=== PATIENT | female | born 1980 | race African-American/Black ===

== ENCOUNTER 2017-01-23 09:21 | Observation (INO) | payer MEDICAID ==
[~2017-01-23] VITALS: Ht 160 cm; Wt 107.0 kg
[2017-01-23] MEDS ORDERED: METF500T4 PO (09:56)
[2017-01-23] MEDS ORDERED: SODIUM CHLORIDE 0.9% 1,000 ML IV SCH (10:30)
[2017-01-23] MEDS ORDERED: LABETALOL HCL 200MG TABLET PO SCH (10:45)
[2017-01-23 12:00] LABS: BASOPHILS % 0.2 % (0.0-2.0); EOSINOPHILS % 0.6 % (0.0-5.0); HEMATOCRIT. 31.1 % (36.0-48.0); HEMOGLOBIN. 10.7 g/dL (12.0-16.0); LYMPHOCYTES % 11.7 % (20.0-50.0); MEAN CORPUSCULAR HEMOGLOBIN 33.7 pg (28.0-32.0); MEAN CORPUSCULAR VOLUME 98.2 fL (81.0-99.0); MEAN PLATELET VOLUME 8.7 fl (7.4-10.4); MONOCYTES % 6.7 % (2.0-8.0); NEUTROPHILS % 80.8 % (40.0-76.0); PLATELET 190 x1000/uL (130-400); RED BLOOD CELL COUNT 3.17 mill/uL (4.2-5.4); RED CELL DISTRIBUTION WIDTH 12.4 % (11.6-14.6)
[2017-01-23 12:07] LABS: D-DIMER 0.59 mg/L FEU (<0.50); PARTIAL THROMBOPLASTIN TIME 30.2 sec (23.4-31.0); PROTHROMBIN TIME 10.2 sec (9.4-11.6)
[2017-01-23 12:10] LABS: CLARITY URINE CLEAR (CLEAR); COLOR URINE YELLOW (YELLOW); GLUCOSE URINE NEGATIVE (NEGATIVE); KETONES URINE TRACE (NEGATIVE); LEUKOCYTE ESTERASE URINE 2+ (NEGATIVE); NITRITE URINE NEGATIVE (NEGATIVE); OCCULT BLOOD URINE NEGATIVE (NEGATIVE); PH URINE 7.5 (4.5-8.0); PROTEIN URINE NEGATIVE (NEGATIVE); SPECIFIC GRAVITY URINE 1.021 (1.005-1.030); UROBILINOGEN URINE 0.2 E.U./dL (0.2-1.0)
[2017-01-23 12:17] LABS: CHLORIDE 105 mEq/L (98-107)
[2017-01-23 12:25] LABS: CARBON DIOXIDE 24 mEq/L (21-32)
[2017-01-23 12:25] LABS: *AMPHETAMINES SCREEN URINE NEGATIVE (NEGATIVE); *BARBITURATES SCREEN URINE NEGATIVE (NEGATIVE); *BENZODIAZEPINES SCREEN URINE NEGATIVE (NEGATIVE); *COCAINE SCREEN URINE NEGATIVE (NEGATIVE); METHADONE URINE SCREEN NEGATIVE (NEGATIVE); OPIATES URINE SCREEN NEGATIVE (NEGATIVE); PHENCYCLIDINE URINE SCREEN NEGATIVE (NEGATIVE)
[2017-01-23 12:26] LABS: CANNABINOID URINE SCREEN PRESUMTIVE POSITIVE (NEGATIVE)
[2017-01-23] MEDS: TERBUTALINE SULFATE 1MG/ML VIAL SUBCUT PRN ×3 (12:58→14:52)
[2017-01-23 13:57] LABS: RUBELLA IGG 36.5 IU/mL (4.99-10)
[2017-01-23 13:58] LABS: HEPATITIS B SURFACE ANTIGEN NEGATIVE
[2017-01-23] MEDS ORDERED: CEFAZOLIN 2,000 MG in DEXT 5% WATER 100 ML IV NR (14:30)
[2017-01-23] MEDS ORDERED: LABETALOL HCL 100MG TABLET PO NR (16:15)
[2017-01-23] MEDS ORDERED: BETAMETHASONE ACET/BETAMET 30 MG/5 ML VIAL IM NR (16:15)
[2017-01-23] MEDS ORDERED: NIFEDIPINE XL 30MG TAB PO SCH (18:45)
[2017-01-31 07:19] LABS: CANNABINOID CONFIRMATION URINE Positive (.)
== END 2017-01-23 20:28 | disposition left against medical advice (07) ==
LOC: L&D 09:21
PROVIDERS: ADMIT Specialist; ATTEND Specialist
DX: O26.893 Other specified pregnancy related conditions, third trimester (principal); R10.2 Pelvic and perineal pain; O10.913 Unspecified pre-existing hypertension complicating pregnancy, third trimester; O24.113 Pre-existing type 2 diabetes mellitus, in pregnancy, third trimester; E11.9 Type 2 diabetes mellitus without complications; Z3A.31 31 weeks gestation of pregnancy
CPT/HCPCS: 36415; 76805; 76818; 80053; 80305; 80349; 81001; 82731; 84550; 85025; 85379; 85384; 85610; 85730; 86592; 86703; 86762; 86850; 86900; 86901; 87070; 87340; 96361; 96365; 96372; 99281; G0378; J0690; J0702; J3105; J7030; J7060

== ENCOUNTER 2017-03-21 02:34 | Inpatient (IN) | payer MEDICAID ==
[2017-03-21] VITALS (27 sets, daily range): BP systolic 90–155; BP diastolic 60–91
[~2017-03-21] VITALS: Ht 162.6 cm; Wt 108.0 kg
[~2017-03-21 02:34] MED LIST: METF500T4 PO
[2017-03-21] MEDS ORDERED: METO25TA6 PO (02:40)
[2017-03-21] MEDS ORDERED: PNV1TABL76 PO (02:40)
[2017-03-21] MEDS ORDERED: LISI2.5T47 PO (02:40)
[2017-03-21] MEDS ORDERED: HYDR12.529 PO (02:40)
[2017-03-21] MEDS ORDERED: DEXT 5%/LACTATED RINGERS 1,000 ML IV SCH (02:55)
[2017-03-21] MEDS ORDERED: LACTATED RINGERS 1,000 ML IV SCH (02:55)
[2017-03-21] MEDS ORDERED: CARBOPROST TROMETHAMINE 250 MCG/ML AMPUL IM PRN (03:00)
[2017-03-21] MEDS ORDERED: TERBUTALINE SULFATE 1MG/ML VIAL SUBCUT NR (03:00)
[2017-03-21] MEDS ORDERED: BUTORPHANOL TARTRATE 2 MG/ML VIAL IV PRN (03:00)
[2017-03-21] MEDS ORDERED: MAGNESIUM 20 G PREMIX (L & D) 500 ML IV SCH (03:00)
[2017-03-21] MEDS ORDERED: NALOXONE HCL 0.4 MG/ML 1ML VIAL IM PRN (03:00)
[2017-03-21] MEDS ORDERED: METHYLERGONOVINE MALEATE 0.2 MG/ML IM PRN (03:00)
[2017-03-21] MEDS ORDERED: MISOPROSTOL 100MCG TABLET VG PRN (03:00)
[2017-03-21] MEDS: HYDRALAZINE 20MG/ML VIAL IV NR ×2 (03:37→03:47)
[2017-03-21 03:46] LABS: BASOPHILS % 0.4 % (0.0-2.0); EOSINOPHILS % 1.3 % (0.0-5.0); HEMATOCRIT. 34.5 % (36.0-48.0); LYMPHOCYTES % 11.4 % (20.0-50.0); MEAN CORPUSCULAR HEMOGLOBIN 33.8 pg (28.0-32.0); MEAN CORPUSCULAR VOLUME 97.6 fL (81.0-99.0); MEAN PLATELET VOLUME 8.5 fl (7.4-10.4); MONOCYTES % 7.9 % (2.0-8.0); PLATELET 195 x1000/uL (130-400); RED BLOOD CELL COUNT 3.54 mill/uL (4.2-5.4); RED CELL DISTRIBUTION WIDTH 12.3 % (11.6-14.6)
[2017-03-21 03:55] LABS: PARTIAL THROMBOPLASTIN TIME 28.4 sec (23.4-31.0)
[2017-03-21 03:59] LABS: CHLORIDE 107 mEq/L (98-107)
[2017-03-21 04:15] LABS: CARBON DIOXIDE 21 mEq/L (21-32)
[2017-03-21] MEDS ORDERED: MORPHINE SULFATE/PF 1MG/ML 10ML AMP ONE (04:30)
[2017-03-21] MEDS ORDERED: MIDAZOLAM HCL 2 MG/2 ML VIAL ONE (04:30)
[2017-03-21] MEDS ORDERED: PHENYLEPHRINE HCL 10 MG/ML 1ML (IV VIAL) IV ONE (04:33)
[2017-03-21] MEDS ORDERED: CEFAZOLIN 2000MG PREMIX 100 ML IV ONE (04:33)
[2017-03-21] MEDS ORDERED: ONDANSETRON HCL 4MG/2ML VIAL ONE (04:33)
[2017-03-21] MEDS ORDERED: EPHEDRINE SULFATE 50MG/ML VIAL ONE (04:33)
[2017-03-21] MEDS ORDERED: SODIUM CHLORIDE 0.9% 10ML VIAL ONE (04:33)
[2017-03-21] MEDS ORDERED: DEXAMETHASONE 4MG/ML 1ML VIAL ONE (04:33)
[2017-03-21] MEDS ORDERED: OXYTOCIN 10 UNITS/ML 1ML ONE (04:33)
[2017-03-21 04:44] LABS: CLARITY URINE CLEAR (CLEAR); COLOR URINE YELLOW (YELLOW); GLUCOSE URINE NEGATIVE (NEGATIVE); KETONES URINE 2+ (NEGATIVE); LEUKOCYTE ESTERASE URINE 2+ (NEGATIVE); NITRITE URINE NEGATIVE (NEGATIVE); OCCULT BLOOD URINE TRACE (NEGATIVE); PH URINE 7.5 (4.5-8.0); PROTEIN URINE 2+ (NEGATIVE); SPECIFIC GRAVITY URINE 1.022 (1.005-1.030)
[2017-03-21] MEDS: LABETALOL 5MG/ML SYR 20 MG/4 ML SYRINGE IV NR ×2 (04:51→06:04)
[2017-03-21] MEDS ORDERED: LABETALOL 5MG/ML SYR 20 MG/4 ML SYRINGE IV NR (05:15)
[2017-03-21 05:22] LABS: *AMPHETAMINES SCREEN URINE NEGATIVE (NEGATIVE); *BARBITURATES SCREEN URINE NEGATIVE (NEGATIVE); *BENZODIAZEPINES SCREEN URINE NEGATIVE (NEGATIVE); *COCAINE SCREEN URINE NEGATIVE (NEGATIVE); METHADONE URINE SCREEN NEGATIVE (NEGATIVE); OPIATES URINE SCREEN NEGATIVE (NEGATIVE); PHENCYCLIDINE URINE SCREEN NEGATIVE (NEGATIVE)
[2017-03-21 05:35] LABS: CANNABINOID URINE SCREEN PRESUMTIVE POSITIVE (NEGATIVE)
[2017-03-21] MEDS ORDERED: LABETALOL 5MG/ML SYR 20 MG/4 ML SYRINGE IV PRN (05:45)
[2017-03-21 06:51] LABS: RUBELLA IGG 42.5 IU/mL (4.99-10)
[2017-03-21 06:52] LABS: HEPATITIS B SURFACE ANTIGEN NEGATIVE
[2017-03-21] MEDS ORDERED: DEXT 5%/LR + PITOCIN 20UNITS/L 1,000 ML IV SCH (07:36)
[2017-03-21] MEDS ORDERED: LANOLIN OINT 0.25 GM TUBE TOP PRN (07:45)
[2017-03-21] MEDS ORDERED: DIPHENHYDRAMINE 25MG CAPSULE PO PRN (07:45)
[2017-03-21] MEDS ORDERED: RHO(D) IMMUNE GLOBULIN 300 MCG/SYR IM PRN (07:45)
[2017-03-21] MEDS ORDERED: HYDROCODONE/ACETAMINOPHEN 5/325MG TABLET PO PRN (07:45)
[2017-03-21] MEDS ORDERED: ONDANSETRON HCL 4MG/2ML VIAL IV PRN ×2 (07:45→11:00)
[2017-03-21] MEDS ORDERED: BISACODYL 10MG SUPP PR PRN (07:45)
[2017-03-21 07:56] LABS: BG BASE EXCESS -12.3 mmol/L (-2.0-2.0); BG FRACTION INSPIRED OXYGEN 21; BG HCO3 ACT 17.3 mmol/L (22.0-26.0); BG PCO2 53.8 mmHg (35.0-45.0); BG PH 7.125 (7.350-7.450); BG PO2 < 30.3 mmHg (75.0-100.0); BG SAMPLE SITE CORD; BG VENT MODE ROOM AIR
[2017-03-21 07:57] LABS: BG BASE EXCESS -7.2 mmol/L (-2.0-2.0); BG FRACTION INSPIRED OXYGEN 21; BG HCO3 ACT 20.3 mmol/L (22.0-26.0); BG PCO2 48.8 mmHg (35.0-45.0); BG PH 7.238 (7.350-7.450); BG PO2 < 30.3 mmHg (75.0-100.0); BG SAMPLE SITE CORD; BG VENT MODE ROOM AIR
[2017-03-21] MEDS ORDERED: INFLUENZA VIRUS VACCINE 0.5ML SYR IM ONE (08:45)
[2017-03-21] MEDS ORDERED: TETANUS, DIPHTHERIA, PERTUSSIS VAC/PF 0.5ML (>7YR OLD) IM ONE (08:45)
[2017-03-21] MEDS: METOPROLOL TARTRATE 25MG TABLET PO SCH ×2 (09:00→22:04)
[2017-03-21] MEDS: HYDROCHLOROTHIAZIDE 25MG TABLET PO SCH (09:48)
[2017-03-21] MEDS: LISINOPRIL 20MG TABLET PO SCH ×2 (09:57→22:03)
[2017-03-21] MEDS: PRENATAL VIT/FE FUMARATE/FA TABLET PO SCH (09:57)
[2017-03-21 10:47] LABS: HEMATOCRIT. 33.7 % (36.0-48.0); HEMOGLOBIN. 11.6 g/dL (12.0-16.0); MEAN CORPUSCULAR HEMOGLOBIN 33.6 pg (28.0-32.0); MEAN CORPUSCULAR VOLUME 98.1 fL (81.0-99.0); MEAN PLATELET VOLUME 8.3 fl (7.4-10.4); PLATELET 185 x1000/uL (130-400); RED BLOOD CELL COUNT 3.43 mill/uL (4.2-5.4); RED CELL DISTRIBUTION WIDTH 12.4 % (11.6-14.6)
[2017-03-21] MEDS ORDERED: NALOXONE HCL 0.4 MG/ML 1ML VIAL IV PRN (11:00)
[2017-03-21] MEDS ORDERED: DIPHENHYDRAMINE 50MG/ML VIAL IV PRN (11:00)
[2017-03-21 11:52] LABS: PLATELET ESTIMATE NORMAL
[2017-03-21] MEDS: MAGNESIUM 20 G PREMIX (L & D) 500 ML IV SCH ×2 (14:24→19:40)
[2017-03-21] MEDS: SIMETHICONE 80MG TABLET CHEW PO SCH ×4 (14:24→21:35)
[2017-03-21] MEDS: CEFAZOLIN 2,000 MG in DEXT 5% WATER 100 ML IV SCH ×2 (15:16→22:27)
[2017-03-21] MEDS: DOCUSATE SODIUM 100MG CAPSULE PO SCH (21:36)
[2017-03-21] MEDS: KETOROLAC 30MG/ML VIAL IV SCH (21:40)
[2017-03-21] MEDS: HYDROCODONE/ACETAMINOPHEN 5/325MG TABLET PO PRN (21:44)
[2017-03-21] MEDS ORDERED: BUTORPHANOL TARTRATE 2 MG/ML VIAL IM PRN (23:30)
[2017-03-22] VITALS: BP 124/58
[2017-03-22] MEDS: KETOROLAC 30MG/ML VIAL IV SCH (02:24)
[2017-03-22] MEDS ORDERED: MAGNESIUM 20 G PREMIX (L & D) 500 ML IV SCH (03:00)
[2017-03-22 04:20] VITALS: BP 98/54
[2017-03-22] MEDS: MAGNESIUM 20 G PREMIX (L & D) 500 ML IV SCH (04:44)
[2017-03-22] MEDS: CEFAZOLIN 2,000 MG in DEXT 5% WATER 100 ML IV SCH ×3 (06:31→22:55)
[2017-03-22 08:00] VITALS: BP 168/84
[2017-03-22] MEDS: LISINOPRIL 20MG TABLET PO SCH ×2 (08:04→21:09)
[2017-03-22] MEDS: HYDROCHLOROTHIAZIDE 25MG TABLET PO SCH (08:04)
[2017-03-22] MEDS: METOPROLOL TARTRATE 25MG TABLET PO SCH ×2 (08:06→21:08)
[2017-03-22] MEDS: IBUPROFEN 400MG TABLET PO PRN ×2 (08:08→18:33)
[2017-03-22] MEDS: PRENATAL VIT/FE FUMARATE/FA TABLET PO SCH (08:09)
[2017-03-22] MEDS: SIMETHICONE 80MG TABLET CHEW PO SCH ×4 (08:11→21:08)
[2017-03-22] MEDS: FERROUS SULFATE 325MG TABLET PO SCH ×2 (11:59→17:00)
[2017-03-22 12:00] VITALS: BP 154/74
[2017-03-22] MEDS: HYDROCODONE/ACETAMINOPHEN 5/325MG TABLET PO PRN ×2 (12:19→19:33)
[2017-03-22 16:10] VITALS: BP 149/86
[2017-03-22 20:00] VITALS: BP 163/90
[2017-03-22] MEDS: DOCUSATE SODIUM 100MG CAPSULE PO SCH (22:56)
[2017-03-23] MEDS: HYDROCODONE/ACETAMINOPHEN 5/325MG TABLET PO PRN ×4 (00:10→19:44)
[2017-03-23] MEDS: IBUPROFEN 400MG TABLET PO PRN (05:45)
[2017-03-23 06:19] VITALS: BP 168/73
[2017-03-23] MEDS: CEFAZOLIN 2,000 MG in DEXT 5% WATER 100 ML IV SCH (06:30)
[2017-03-23 07:45] VITALS: BP 166/88
[2017-03-23] MEDS: SIMETHICONE 80MG TABLET CHEW PO SCH ×4 (08:34→21:05)
[2017-03-23] MEDS: PRENATAL VIT/FE FUMARATE/FA TABLET PO SCH (08:35)
[2017-03-23] MEDS: FERROUS SULFATE 325MG TABLET PO SCH ×3 (08:35→17:47)
[2017-03-23] MEDS: LABETALOL HCL 200MG TABLET PO SCH ×3 (08:36→21:05)
[2017-03-23] MEDS: HYDROCHLOROTHIAZIDE 25MG TABLET PO SCH (09:13)
[2017-03-23 12:14] VITALS: BP 158/82
[2017-03-23 16:04] VITALS: BP 151/81
[2017-03-23 20:00] VITALS: BP 159/82
[2017-03-23] MEDS: DOCUSATE SODIUM 100MG CAPSULE PO SCH (21:05)
[2017-03-24] MEDS: IBUPROFEN 400MG TABLET PO PRN (03:00)
[2017-03-24] MEDS: LABETALOL HCL 200MG TABLET PO SCH (07:10)
[2017-03-24 07:54] VITALS: BP 152/84
[2017-03-24] MEDS: SIMETHICONE 80MG TABLET CHEW PO SCH (08:22)
[2017-03-24] MEDS: PRENATAL VIT/FE FUMARATE/FA TABLET PO SCH (08:23)
[2017-03-24] MEDS: HYDROCODONE/ACETAMINOPHEN 5/325MG TABLET PO PRN (08:23)
[2017-03-24] MEDS: HYDROCHLOROTHIAZIDE 25MG TABLET PO SCH (08:23)
[2017-03-24] MEDS: FERROUS SULFATE 325MG TABLET PO SCH (08:25)
[2017-03-26 06:19] LABS: CANNABINOID CONFIRMATION URINE Positive (.)
== END 2017-03-24 11:00 | disposition home or self-care (01) | DRG 540 ==
LOC: L&D 02:34 → OBSVTOIN 02:34 → MICUSO 08:00 → 7EST PP/OB 20:45
PROVIDERS: ADMIT Specialist; ATTEND Specialist
PROC: 10D00Z1 Extraction of Products of Conception, Low, Open Approach (ICD-10-PCS; principal; 2017-03-21 07:50)
DX: O36.5930 Maternal care for other known or suspected poor fetal growth, third trimester, not applicable or unspecified (principal); O75.3 Other infection during labor; O34.211 Maternal care for low transverse scar from previous cesarean delivery; O24.92 Unspecified diabetes mellitus in childbirth; O10.92 Unspecified pre-existing hypertension complicating childbirth; O99.324 Drug use complicating childbirth; Z37.0 Single live birth; D25.9 Leiomyoma of uterus, unspecified; E11.9 Type 2 diabetes mellitus without complications; E66.9 Obesity, unspecified; F12.10 Cannabis abuse, uncomplicated; F17.210 Nicotine dependence, cigarettes, uncomplicated; O34.13 Maternal care for benign tumor of corpus uteri, third trimester; O76 Abnormality in fetal heart rate and rhythm complicating labor and delivery; O99.214 Obesity complicating childbirth; O99.334 Smoking (tobacco) complicating childbirth; Z3A.39 39 weeks gestation of pregnancy; Z28.21 Immunization not carried out because of patient refusal
CPT/HCPCS: 36415; 36600; 76805; 76818; 80053; 80305; 80349; 81001; 82805; 82950; 82962; 83735; 84156; 84550; 85025; 85384; 85610; 85730; 86592; 86703; 86762; 86850; 86900; 86920; 87340; 88307; 90715; A4216; J0171; J0360; J0595; J0690; J1100; J1200; J1885; J2250; J2274; J2370; J2405; J2590; J3105; J3475; J3490; J7060; J7120; Q0163; A4315

== ENCOUNTER 2017-03-30 10:21 | Emergency (ER) | payer MEDICAID ==
[~2017-03-30] VITALS: Ht 160 cm; Wt 106.0 kg
[~2017-03-30 10:21] MED LIST changes: -METF500T4 PO; +PNV1TABL76 PO
[2017-03-30 10:43] VITALS: BP 187/134
[2017-03-30] MEDS ORDERED: METO50TA5 PO (10:51)
[2017-03-30] MEDS ORDERED: HYDR25TA PO (10:51)
[2017-03-30] MEDS ORDERED: LISI-604 PO (10:51)
== END 2017-03-30 11:41 | disposition left against medical advice (07) ==
LOC: ER 10:44
DX: R10.9 Unspecified abdominal pain (principal); Z53.21 Procedure and treatment not carried out due to patient leaving prior to being seen by health care provider

== ENCOUNTER 2017-03-31 21:21 | Emergency (ER) | payer MEDICAID ==
[~2017-03-31] VITALS: Ht 160 cm; Wt 108.0 kg
[~2017-03-31 21:21] MED LIST changes: +HYDR25TA PO; +LISI-604 PO; +METO50TA5 PO
[2017-03-31] MEDS ORDERED: ONDANSETRON HCL 4MG/2ML VIAL IV STA (22:23)
[2017-03-31] MEDS ORDERED: KETOROLAC 30MG/ML VIAL IV STA (22:23)
[2017-03-31] MEDS ORDERED: VANCOMYCIN 1 G PREMIX 200 ML IV ONE (22:30)
[2017-03-31] MEDS ORDERED: MORPHINE SULFATE 10 MG/ML CPJ IV ONE (22:30)
[2017-03-31] MEDS ORDERED: PIPERACILLIN/TAZ 3.375G PREMIX 50 ML IV ONE (22:30)
[2017-03-31] MEDS ORDERED: SODIUM CHLORIDE 0.9% 1000ML BAG (SEPSIS BOLUS) IV ONE (22:30)
[2017-03-31 23:39] LABS: HEMATOCRIT. 30.9 % (36.0-48.0); HEMOGLOBIN. 10.8 g/dL (12.0-16.0); MEAN CORPUSCULAR VOLUME 97.2 fL (81.0-99.0); MEAN PLATELET VOLUME 7.6 fl (7.4-10.4); PLATELET 260 x1000/uL (130-400); RED BLOOD CELL COUNT 3.18 mill/uL (4.2-5.4); RED CELL DISTRIBUTION WIDTH 12.2 % (11.6-14.6)
[2017-03-31 23:51] LABS: INR 1.1; PROTHROMBIN TIME 11.2 sec (9.4-11.6)
[2017-03-31 23:56] LABS: B-HCG QUANTITATIVE 7 mIU/mL (<3); CARBON DIOXIDE 24 mEq/L (21-32); CHLORIDE 109 mEq/L (98-107)
[2017-04-01 00:37] LABS: ATYPICAL LYMPHOCYTES 1; PLATELET ESTIMATE NORMAL
[2017-04-01 03:35] VITALS: BP 126/92
== END 2017-04-01 03:40 | disposition home or self-care (01) ==
LOC: ER 21:51 → EDBEDREQ 04-01 00:57 → EDBEDREQSVC 04-01 00:57 → EDBEDREQTM 04-01 00:57 → ER 04-01 03:40 → CANBEDREQ 04-01 04:14
DX: O90.1 Disruption of perineal obstetric wound (principal); O90.2 Hematoma of obstetric wound; R10.9 Unspecified abdominal pain; E11.9 Type 2 diabetes mellitus without complications; I10 Essential (primary) hypertension; Z98.890 Other specified postprocedural states; F17.210 Nicotine dependence, cigarettes, uncomplicated
CPT/HCPCS: 36415; 74176; 80053; 83605; 84702; 85025; 85610; 87040; 87070; 87077; 87186; 87205; 96365; 96367; 96375; 99285; J1885; J2270; J2405; J2543; J3370; J7030; Z7610

== ENCOUNTER 2019-01-14 15:57 | Emergency (ER) | payer MEDICAID ==
[~2019-01-14] VITALS: Ht 165.1 cm; Wt 97.0 kg
[~2019-01-14 15:57] MED LIST changes: +METO-539 PO; -METO50TA5 PO
[2019-01-14] MEDS ORDERED: ALBUTEROL (0.083%) 2.5MG/3ML NEB HHN STA (17:32)
[2019-01-14] MEDS ORDERED: FUROSEMIDE 40MG/4ML VIAL IV ONE (17:45)
[2019-01-14 18:00] LABS: BASOPHILS % 1.1 % (0.0-2.0); EOSINOPHILS % 8.9 % (0.0-5.0); HEMATOCRIT. 30.5 % (36.0-48.0); HEMOGLOBIN. 10.3 g/dL (12.0-16.0); LYMPHOCYTES % 30.9 % (20.0-50.0); MEAN CORPUSCULAR HEMOGLOBIN 29.5 pg (28.0-32.0); MEAN CORPUSCULAR VOLUME 87.8 fL (81.0-99.0); MEAN PLATELET VOLUME 7.2 fl (7.4-10.4); MONOCYTES % 7.3 % (2.0-8.0); NEUTROPHILS % 51.8 % (40.0-76.0); PLATELET 256 x1000/uL (130-400); RED BLOOD CELL COUNT 3.47 mill/uL (4.2-5.4); RED CELL DISTRIBUTION WIDTH 15.7 % (11.6-14.6)
[2019-01-14 18:09] LABS: CHLORIDE 112 mEq/L (98-107)
[2019-01-14 22:05] VITALS: BP 158/104
== END 2019-01-14 22:55 | disposition short-term general hospital (02) ==
LOC: ER 15:57 → CANBEDREQ 23:20
DX: I11.0 Hypertensive heart disease with heart failure (principal); I50.9 Heart failure, unspecified; E11.9 Type 2 diabetes mellitus without complications; R06.02 Shortness of breath; M79.89 Other specified soft tissue disorders; R05 Cough; R06.2 Wheezing; Z87.891 Personal history of nicotine dependence; Z98.890 Other specified postprocedural states; Z79.899 Other long term (current) drug therapy
CPT/HCPCS: 36415; 71045; 80053; 81025; 83880; 84484; 85025; 85379; 93005; 94640; 96374; 99285; J1940; J7611; Z7610